=== PATIENT | female | born 1940 | race Asian ===

== ENCOUNTER 2023-11-25 09:56 | Inpatient (IN) | payer MEDICAID ==
[~2023-11-25] VITALS: Ht 149.9 cm; Wt 54.4 kg
[2023-11-25 09:59] VITALS: BP_SYST 126; PULSE 61; RESP 16; TEMP 97.2; O2SAT 96
[2023-11-25] MEDS: HYDROcodone/ACETAMIN 5-325 MG TAB (NORCO/ VICODIN) PO ONE (10:24)
[2023-11-25] MEDS: KETOROLAC TROMETHAMINE 30 MG VIAL IM ONE (10:25)
[2023-11-25 10:39] LABS: BASOPHILS % (AUTO) 0.7 % (0.0-2.0); EOSINOPHILS # (AUTO) 0.1 K/uL (0.0-0.4); EOSINOPHILS % (AUTO) 2.8 % (0.0-4.0); HEMATOCRIT 34.3 % (36-48); HEMOGLOBIN 11.2 g/dL (12.0-16.0); LYMPHOCYTES # (AUTO) 1.2 K/uL (1.0-5.5); LYMPHOCYTES % (AUTO) 26.8 % (20.5-51.5); MEAN CORPUSCULAR HEMOGLOBIN 31 pg (27-31); MEAN CORPUSCULAR HGB CONC 33 % (32-36); MEAN CORPUSCULAR VOLUME 94 fL (79.0-98.0); MONOCYTES # (AUTO) 0.3 K/uL (0.0-1.0); NEUTROPHILS # (AUTO) 2.6 K/uL (1.8-7.7); NEUTROPHILS % (AUTO) 61.7 % (40.0-70.0); PLATELET COUNT (AUTO) 166 K/uL (130-430); RED BLOOD CELL COUNT(AUTO) 3.64 MIL/uL (4.2-6.2); RED CELL DISTRIBUTION WIDTH 17.4 % (9.0-15.0); WHITE BLOOD COUNT (AUTO) 4.3 K/uL (4.8-10.8)
[2023-11-25 11:18] LABS: POTASSIUM 4.1 mmol/L (3.5-5.1); SODIUM SERUM 144 mmol/L (136-145)
[2023-11-25 11:19] LABS: ANION GAP 9 (5-15); CALCIUM 8.5 mg/dL (8.4-11.0); CARBON DIOXIDE 27 mmol/L (23-29); CHLORIDE 108 mmol/L (98-107); CREATININE 0.81 mg/dL (0.55-1.30); GLUCOSE 89 mg/dL (74-106); TOTAL BILIRUBIN 0.5 mg/dL (0.0-1.0); UREA NITROGEN, BLOOD 11 mg/dL (8-21)
[2023-11-25 11:20] LABS: ALANINE AMINOTRANSFERASE 19 U/L (12-78); ALBUMIN 2.7 g/dL (3.4-4.8); ASPARTATE AMINOTRANSFERASE 16 U/L (10-37); BILIRUBIN,DIRECT 0.2 mg/dL (0.0-0.3); TOTAL PROTEIN, SERUM 6.5 g/dL (6.4-8.3)
[2023-11-25 11:43] LABS: BILIRUBIN,URINE NEGATIVE (NEGATIVE); BLOOD, URINE NEGATIVE (NEGATIVE); CLARITY/URINE CLEAR (CLEAR); COLOR,URINE YELLOW (YELLOW); GLUCOSE,URINE NEGATIVE (NEGATIVE); KETONES,URINE NEGATIVE (NEGATIVE); LEUKOCYTE ESTERASE ,URINE NEGATIVE (NEGATIVE); NITRITE, URINE NEGATIVE (NEGATIVE); PH,URINE 7.5 (5.0-8.0); PROTEIN URINE 2+ (NEGATIVE); UROBILINOGEN,URINE 0.2 (0.2-1.0)
[2023-11-25 11:44] LABS: AMYLASE 38 U/L (0-100); LIPASE 36 U/L (16-77)
[2023-11-25 12:07] LABS: BACTERIA,URINE RARE /HPF (None Seen); MUCUS,URINE 1+ /LPF (None Seen); RBC,URINE 0-3 /HPF (0-3); WBC,URINE 0-3 /HPF (0-3)
[2023-11-25] MEDS ORDERED: ISOS30TA85 PO (14:33)
[2023-11-25] MEDS ORDERED: ATOR40TA68 PO (14:33)
[2023-11-25] MEDS ORDERED: AMLO2.5T50 PO (14:33)
[2023-11-25] MEDS ORDERED: APIX2.5T PO (14:33)
[2023-11-25 18:36] VITALS: BP_SYST 149; PULSE 56; RESP 16; TEMP 96.6; O2SAT 95
[2023-11-25 20:00] VITALS: BP_SYST 148; PULSE 51; RESP 16; TEMP 97.5; O2SAT 95
[2023-11-25 22:00] VITALS: O2SAT 95
[2023-11-26 00:47] VITALS: BP_SYST 144; PULSE 58; RESP 18; TEMP 97.9; O2SAT 95
[2023-11-26 07:55] VITALS: BP_SYST 155; PULSE 78; RESP 16; TEMP 97.9; O2SAT 95
[2023-11-26 09:00] VITALS: O2SAT 95
[2023-11-26] MEDS ORDERED: LORazepam 2 MG/ML VIAL IVP PRN (11:00)
[2023-11-26] MEDS ORDERED: NALOXONE HCL 0.4 MG/ML AMP (NARCAN) IVP PRN ×2 (11:00)
[2023-11-26] MEDS ORDERED: ONDANSETRON HCL 4 MG/2 ML VIAL IVP PRN (11:00)
[2023-11-26] MEDS ORDERED: NON-FORMULARY MEDICATION (Amlodipine Besylate 1 TAB) PO SCH (11:00)
[2023-11-26] MEDS ORDERED: HYDROcodone/ACETAMIN 10-325 MG TAB PO PRN (11:00)
[2023-11-26 11:06] VITALS: BP_SYST 158; PULSE 78; RESP 16; TEMP 96.4; O2SAT 96
[2023-11-26] MEDS ORDERED: ACETAMINOPHEN 325 MG TABLET PO PRN (11:15)
[2023-11-26 11:48] LABS: BASOPHILS % (AUTO) 0.5 % (0.0-2.0); EOSINOPHILS # (AUTO) 0.1 K/uL (0.0-0.4); EOSINOPHILS % (AUTO) 1.9 % (0.0-4.0); HEMATOCRIT 33.2 % (36-48); HEMOGLOBIN 10.8 g/dL (12.0-16.0); LYMPHOCYTES # (AUTO) 0.8 K/uL (1.0-5.5); LYMPHOCYTES % (AUTO) 16.8 % (20.5-51.5); MEAN CORPUSCULAR HEMOGLOBIN 31 pg (27-31); MEAN CORPUSCULAR HGB CONC 33 % (32-36); MEAN CORPUSCULAR VOLUME 95 fL (79.0-98.0); MONOCYTES # (AUTO) 0.3 K/uL (0.0-1.0); MONOCYTES % (AUTO) 6.1 % (1.7-9.3); NEUTROPHILS # (AUTO) 3.5 K/uL (1.8-7.7); NEUTROPHILS % (AUTO) 74.7 % (40.0-70.0); PLATELET COUNT (AUTO) 171 K/uL (130-430); RED BLOOD CELL COUNT(AUTO) 3.49 MIL/uL (4.2-6.2); RED CELL DISTRIBUTION WIDTH 17.2 % (9.0-15.0); WHITE BLOOD COUNT (AUTO) 4.6 K/uL (4.8-10.8)
[2023-11-26] MEDS: ISOSORBIDE MONONITRATE 30 MG TAB.ER.24H PO ONE (11:52)
[2023-11-26] MEDS: ATORVASTATIN 20 MG TABLET PO ONE (11:52)
[2023-11-26] MEDS: HYDROcodone/ACETAMIN 5-325 MG TAB (NORCO/ VICODIN) PO PRN (11:56)
[2023-11-26 12:07] LABS: ANION GAP 9 (5-15); CARBON DIOXIDE 25 mmol/L (23-29); CHLORIDE 106 mmol/L (98-107); CREATININE 0.76 mg/dL (0.55-1.30); GLUCOSE 253 mg/dL (74-106); POTASSIUM 3.8 mmol/L (3.5-5.1); SODIUM SERUM 140 mmol/L (136-145); UREA NITROGEN, BLOOD 15 mg/dL (8-21)
[2023-11-26] MEDS: NORMAL SALINE 5 ML DISP.SYRIN IVF SCH (13:15)
[2023-11-26 15:06] VITALS: BP_SYST 127; PULSE 57; RESP 16; TEMP 96.8; O2SAT 93
[2023-11-26 20:00] VITALS: BP_SYST 126; PULSE 62; RESP 17; TEMP 97; O2SAT 98
[2023-11-26] MEDS: APIXABAN 2.5 MG TABLET PO SCH (21:00)
[2023-11-27 00:32] VITALS: BP_SYST 133; PULSE 66; RESP 17; TEMP 97.5; O2SAT 97
[2023-11-27 07:35] LABS: BASOPHILS % (AUTO) 0.5 % (0.0-2.0); EOSINOPHILS # (AUTO) 0.1 K/uL (0.0-0.4); EOSINOPHILS % (AUTO) 2.2 % (0.0-4.0); HEMATOCRIT 33.1 % (36-48); HEMOGLOBIN 10.9 g/dL (12.0-16.0); LYMPHOCYTES % (AUTO) 22.4 % (20.5-51.5); MEAN CORPUSCULAR HEMOGLOBIN 31 pg (27-31); MEAN CORPUSCULAR HGB CONC 33 % (32-36); MEAN CORPUSCULAR VOLUME 93 fL (79.0-98.0); MONOCYTES # (AUTO) 0.4 K/uL (0.0-1.0); MONOCYTES % (AUTO) 8.8 % (1.7-9.3); NEUTROPHILS # (AUTO) 2.9 K/uL (1.8-7.7); NEUTROPHILS % (AUTO) 66.1 % (40.0-70.0); PLATELET COUNT (AUTO) 162 K/uL (130-430); RED BLOOD CELL COUNT(AUTO) 3.54 MIL/uL (4.2-6.2); RED CELL DISTRIBUTION WIDTH 17.3 % (9.0-15.0); WHITE BLOOD COUNT (AUTO) 4.4 K/uL (4.8-10.8)
[2023-11-27 07:37] LABS: ALBUMIN 2.2 g/dL (3.4-4.8); ANION GAP 9 (5-15); ASPARTATE AMINOTRANSFERASE 11 U/L (10-37); CALCIUM 8.4 mg/dL (8.4-11.0); CARBON DIOXIDE 26 mmol/L (23-29); CHLORIDE 108 mmol/L (98-107); CREATININE 0.72 mg/dL (0.55-1.30); GLUCOSE 80 mg/dL (74-106); POTASSIUM 3.5 mmol/L (3.5-5.1); SODIUM SERUM 143 mmol/L (136-145); TOTAL BILIRUBIN 0.6 mg/dL (0.0-1.0); TOTAL PROTEIN, SERUM 5.6 g/dL (6.4-8.3); UREA NITROGEN, BLOOD 13 mg/dL (8-21)
[2023-11-27 07:51] LABS: ALANINE AMINOTRANSFERASE 10 U/L (12-78)
[2023-11-27 08:00] VITALS: BP_SYST 145; PULSE 64; RESP 18; TEMP 97.9; O2SAT 95
[2023-11-27 08:30] VITALS: O2SAT 95
[2023-11-27] MEDS: ATORVASTATIN 20 MG TABLET PO SCH (09:26)
[2023-11-27] MEDS: ISOSORBIDE MONONITRATE 30 MG TAB.ER.24H PO SCH (09:27)
[2023-11-27] MEDS: amLODIPine BESYLATE 5 MG TABLET PO SCH (09:28)
[2023-11-27] MEDS: ACETAMINOPHEN 325 MG TABLET PO PRN (11:54)
[2023-11-27 12:00] VITALS: BP_SYST 132; PULSE 72; RESP 18; TEMP 97.8
[2023-11-27 20:00] VITALS: BP_SYST 154; PULSE 52; RESP 18; TEMP 97.8; O2SAT 95
[2023-11-27 21:45] VITALS: O2SAT 95
[2023-11-28] VITALS: BP_SYST 130; PULSE 68; RESP 15; TEMP 98.2; O2SAT 95
[2023-11-28 07:41] LABS: ANION GAP 10 (5-15); CALCIUM 8.1 mg/dL (8.4-11.0); CARBON DIOXIDE 25 mmol/L (23-29); CHLORIDE 108 mmol/L (98-107); CREATININE 0.71 mg/dL (0.55-1.30); GLUCOSE 79 mg/dL (74-106); POTASSIUM 3.6 mmol/L (3.5-5.1); SODIUM SERUM 143 mmol/L (136-145); UREA NITROGEN, BLOOD 13 mg/dL (8-21)
[2023-11-28 07:44] LABS: BASOPHILS % (AUTO) 0.7 % (0.0-2.0); EOSINOPHILS # (AUTO) 0.1 K/uL (0.0-0.4); EOSINOPHILS % (AUTO) 2.8 % (0.0-4.0); HEMATOCRIT 32.5 % (36-48); HEMOGLOBIN 10.8 g/dL (12.0-16.0); LYMPHOCYTES % (AUTO) 22.5 % (20.5-51.5); MEAN CORPUSCULAR HEMOGLOBIN 31 pg (27-31); MEAN CORPUSCULAR HGB CONC 33 % (32-36); MEAN CORPUSCULAR VOLUME 93 fL (79.0-98.0); MONOCYTES # (AUTO) 0.4 K/uL (0.0-1.0); MONOCYTES % (AUTO) 8.5 % (1.7-9.3); NEUTROPHILS # (AUTO) 2.8 K/uL (1.8-7.7); NEUTROPHILS % (AUTO) 65.5 % (40.0-70.0); PLATELET COUNT (AUTO) 155 K/uL (130-430); RED BLOOD CELL COUNT(AUTO) 3.49 MIL/uL (4.2-6.2); WHITE BLOOD COUNT (AUTO) 4.2 K/uL (4.8-10.8)
[2023-11-28 08:34] VITALS: BP_SYST 132; PULSE 43; RESP 24; TEMP 96.7; O2SAT 95
[2023-11-28 14:25] LABS: APPEARANCE,SPUN,BODY FLUID CLEAR (CLEAR); BF APPEARANCE UNSPUN CLEAR (CLEAR); BODY FLUID COLOR YELLOW (LT YELLOW); BODY FLUID SOURCE/ TYPE PLEURAL; SOURCE/TYPE ,BODY FLUID THORACENTESIS
[2023-11-28 14:26] LABS: BODY FLUID TOTAL VOLUME 700 mL; EOSINOPHIL, BODY FLUID 1 %; LYMPHOCYTES, BODY FLUID 88 %; MONOCYTES,BODY FLUID 10 %; NEUTROPHIL, BODY FLUID 1 %; RBC, BODY FLUID 169 /uL; WBC, BODY FLUID 408 /uL
[2023-11-28 15:26] VITALS: BP_SYST 135; PULSE 47; RESP 20; TEMP 97.1; O2SAT 96
[2023-11-28 20:00] VITALS: BP_SYST 133; PULSE 64; RESP 20; TEMP 98.4; O2SAT 96
[2023-11-28 21:45] VITALS: O2SAT 96
[2023-11-28 21:49] LABS: BODY FLUID GLUCOSE 114 mg/dL; BODY FLUID TOTAL PROTEIN 2.7 g/dL
[2023-11-29] VITALS: BP_SYST 128; PULSE 56; RESP 16; TEMP 97.9; O2SAT 96
[2023-11-29 07:13] LABS: BASOPHILS % (AUTO) 0.7 % (0.0-2.0); EOSINOPHILS # (AUTO) 0.1 K/uL (0.0-0.4); EOSINOPHILS % (AUTO) 2.1 % (0.0-4.0); HEMOGLOBIN 11.1 g/dL (12.0-16.0); LYMPHOCYTES # (AUTO) 1.5 K/uL (1.0-5.5); LYMPHOCYTES % (AUTO) 26.9 % (20.5-51.5); MEAN CORPUSCULAR HEMOGLOBIN 31 pg (27-31); MEAN CORPUSCULAR HGB CONC 33 % (32-36); MEAN CORPUSCULAR VOLUME 94 fL (79.0-98.0); MONOCYTES # (AUTO) 0.4 K/uL (0.0-1.0); MONOCYTES % (AUTO) 7.2 % (1.7-9.3); NEUTROPHILS # (AUTO) 3.4 K/uL (1.8-7.7); NEUTROPHILS % (AUTO) 63.1 % (40.0-70.0); PLATELET COUNT (AUTO) 168 K/uL (130-430); RED BLOOD CELL COUNT(AUTO) 3.63 MIL/uL (4.2-6.2); RED CELL DISTRIBUTION WIDTH 17.2 % (9.0-15.0); WHITE BLOOD COUNT (AUTO) 5.4 K/uL (4.8-10.8)
[2023-11-29 07:42] LABS: ALANINE AMINOTRANSFERASE 11 U/L (12-78); ALBUMIN 2.1 g/dL (3.4-4.8); ANION GAP 10 (5-15); ASPARTATE AMINOTRANSFERASE 12 U/L (10-37); CALCIUM 8.3 mg/dL (8.4-11.0); CARBON DIOXIDE 24 mmol/L (23-29); CHLORIDE 109 mmol/L (98-107); CREATININE 0.69 mg/dL (0.55-1.30); GLUCOSE 88 mg/dL (74-106); POTASSIUM 3.6 mmol/L (3.5-5.1); SODIUM SERUM 143 mmol/L (136-145); TOTAL BILIRUBIN 0.6 mg/dL (0.0-1.0); TOTAL PROTEIN, SERUM 5.7 g/dL (6.4-8.3); UREA NITROGEN, BLOOD 13 mg/dL (8-21)
[2023-11-29 07:45] VITALS: O2SAT 98
[2023-11-29 08:31] VITALS: BP_SYST 128; PULSE 68; RESP 17; TEMP 97.6; O2SAT 98
[2023-11-29 11:19] VITALS: BP_SYST 104; PULSE 62; RESP 16; TEMP 97.7; O2SAT 97
[2023-11-29 15:11] VITALS: BP_SYST 105; PULSE 71; RESP 16; TEMP 97.1; O2SAT 97
[2023-11-29 20:00] VITALS: BP_SYST 129; PULSE 65; RESP 18; TEMP 98.4; O2SAT 96
[2023-11-30 00:30] VITALS: BP_SYST 136; PULSE 63; RESP 18; TEMP 98; O2SAT 95
[2023-11-30 07:20] LABS: ANION GAP 9 (5-15); CALCIUM 8.1 mg/dL (8.4-11.0); CARBON DIOXIDE 25 mmol/L (23-29); CHLORIDE 109 mmol/L (98-107); CREATININE 0.67 mg/dL (0.55-1.30); GLUCOSE 92 mg/dL (74-106); POTASSIUM 3.5 mmol/L (3.5-5.1); SODIUM SERUM 143 mmol/L (136-145); UREA NITROGEN, BLOOD 15 mg/dL (8-21)
[2023-11-30 07:34] LABS: BASOPHILS % (AUTO) 0.5 % (0.0-2.0); EOSINOPHILS # (AUTO) 0.1 K/uL (0.0-0.4); EOSINOPHILS % (AUTO) 2.7 % (0.0-4.0); HEMATOCRIT 32.9 % (36-48); HEMOGLOBIN 10.9 g/dL (12.0-16.0); LYMPHOCYTES # (AUTO) 1.4 K/uL (1.0-5.5); LYMPHOCYTES % (AUTO) 25.8 % (20.5-51.5); MEAN CORPUSCULAR HEMOGLOBIN 31 pg (27-31); MEAN CORPUSCULAR HGB CONC 33 % (32-36); MEAN CORPUSCULAR VOLUME 93 fL (79.0-98.0); MONOCYTES # (AUTO) 0.5 K/uL (0.0-1.0); MONOCYTES % (AUTO) 8.9 % (1.7-9.3); NEUTROPHILS # (AUTO) 3.3 K/uL (1.8-7.7); NEUTROPHILS % (AUTO) 62.1 % (40.0-70.0); PLATELET COUNT (AUTO) 166 K/uL (130-430); RED BLOOD CELL COUNT(AUTO) 3.56 MIL/uL (4.2-6.2); WHITE BLOOD COUNT (AUTO) 5.4 K/uL (4.8-10.8)
[2023-11-30 08:00] VITALS: BP_SYST 122; PULSE 67; RESP 18; TEMP 97.6; O2SAT 96
[2023-11-30 09:00] VITALS: O2SAT 96
[2023-11-30] MEDS ORDERED: LEVO-62 PO (09:33)
[2023-11-30 11:12] VITALS: BP_SYST 121; PULSE 68; RESP 16; TEMP 96.7; O2SAT 95
[2023-11-30 15:06] VITALS: BP_SYST 121; PULSE 65; RESP 16; TEMP 96.7; O2SAT 96
[2023-11-30 15:54] VITALS: BP_SYST 113; PULSE 61; RESP 18; TEMP 97.6; O2SAT 97
== END 2023-11-30 16:25 | disposition home or self-care (01) | DRG 143 ==
LOC: SED 09:56 → STU 14:34 → SMU 11-27 22:58
PROVIDERS: ADMIT Preventive Medicine Preventive Medicine/Occupational Environmental Medicine; ATTEND Preventive Medicine Preventive Medicine/Occupational Environmental Medicine
PROC: 05H833Z Insertion of Infusion Device into Left Axillary Vein, Percutaneous Approach (ICD-10-PCS; 2023-11-25)
PROC: 0W9B3ZZ Drainage of Left Pleural Cavity, Percutaneous Approach (ICD-10-PCS; principal; 2023-11-28)
DX: J90 Pleural effusion, not elsewhere classified (principal); E43 Unspecified severe protein-calorie malnutrition; J18.9 Pneumonia, unspecified organism; E88.09 Other disorders of plasma-protein metabolism, not elsewhere classified; E83.51 Hypocalcemia; I10 Essential (primary) hypertension; D72.819 Decreased white blood cell count, unspecified; E05.20 Thyrotoxicosis with toxic multinodular goiter without thyrotoxic crisis or storm; R09.02 Hypoxemia; E78.5 Hyperlipidemia, unspecified; D64.9 Anemia, unspecified; Z79.01 Long term (current) use of anticoagulants; Z79.899 Other long term (current) drug therapy; Z88.8 Allergy status to other drugs, medicaments and biological substances; Z68.24 Body mass index [BMI] 24.0-24.9, adult
CPT/HCPCS: 32555; 36415; 71045; 71250-TC; 71260; 76536; 76604; 80048; 80053; 80076; 81000; 81001; 81015; 82150; 82947; 83605; 83615; 83690; 83986; 84157; 85025; 85379; 85610; 85730; 88108; 89051; 89060; 97110-GP; 97116-GP; 97530-GP; 99285; G0378; J1885; J1956; Q9967